=== PATIENT | male | born 1950 | race African-American/Black ===

== ENCOUNTER 2022-11-06 11:41 | Emergency (ER) | payer OTHER ==
[~2022-11-06] VITALS: Ht 170.2 cm; Wt 87.1 kg
[2022-11-06 11:50] VITALS: BP_SYST 126
[2022-11-06 12:54] LABS: BASOPHILS % (AUTO) 0.5 % (0.0-2.0); EOSINOPHILS # (AUTO) 0.3 K/uL (0.0-0.4); EOSINOPHILS % (AUTO) 4.1 % (0.0-4.0); HEMATOCRIT 43.1 % (36-54); HEMOGLOBIN 14.4 g/dL (14.0-18.0); LYMPHOCYTES # (AUTO) 2.8 K/uL (1.0-5.5); LYMPHOCYTES % (AUTO) 38.4 % (20.5-51.5); MEAN CORPUSCULAR HEMOGLOBIN 29 pg (27-31); MEAN CORPUSCULAR HGB CONC 33 % (32-36); MEAN CORPUSCULAR VOLUME 86 fL (79.0-98.0); MONOCYTES # (AUTO) 0.6 K/uL (0.0-1.0); MONOCYTES % (AUTO) 8.8 % (1.7-9.3); NEUTROPHILS # (AUTO) 3.5 K/uL (1.8-7.7); NEUTROPHILS % (AUTO) 48.2 % (40.0-70.0); PLATELET COUNT (AUTO) 198 K/uL (130-430); RED BLOOD CELL COUNT(AUTO) 5.04 MIL/uL (4.2-6.2); RED CELL DISTRIBUTION WIDTH 13.3 % (9.0-15.0); WHITE BLOOD COUNT (AUTO) 7.3 K/uL (4.8-10.8)
[2022-11-06] MEDS ORDERED: predniSONE 20 MG TABLET PO ONE (13:00)
[2022-11-06] MEDS ORDERED: KETOROLAC TROMETHAMINE 15 MG VIAL IVP ONE (13:00)
[2022-11-06] MEDS ORDERED: IPRATROPIUM/ALBUTEROL SULFATE 3 ML AMPUL.NEB (DUONEB) INH ONE (13:00)
[2022-11-06 13:03] LABS: ANION GAP 7 (5-15); CALCIUM 8.8 mg/dL (8.4-11.0); CHLORIDE 101 mmol/L (98-107); CREATININE 0.91 mg/dL (0.55-1.30); GLUCOSE 111 mg/dL (70-99); UREA NITROGEN, BLOOD 17 mg/dL (8-21)
[2022-11-06 13:10] LABS: ALANINE AMINOTRANSFERASE 35 U/L (12-78); ALBUMIN 3.7 g/dL (3.4-4.8); ASPARTATE AMINOTRANSFERASE 23 U/L (10-37); TOTAL BILIRUBIN 0.7 mg/dL (0.0-1.0)
[2022-11-06 13:14] LABS: GFR AFRICAN AMERICAN 106 mL/min (>90)
[2022-11-06] MEDS ORDERED: ALBMDI INH (13:48)
[2022-11-06] MEDS ORDERED: PRED20TA PO (13:48)
[2022-11-06] MEDS ORDERED: PSEU30TA36 PO (13:48)
[2022-11-06] MEDS ORDERED: GUAI-723 PO (13:48)
[2022-11-06 14:05] VITALS: BP_SYST 120
== END 2022-11-06 14:08 | disposition home or self-care (01) ==
LOC: SED 11:41
DX: J20.9 Acute bronchitis, unspecified (principal); R05.9 Cough, unspecified; R07.9 Chest pain, unspecified; I10 Essential (primary) hypertension; Z79.899 Other long term (current) drug therapy; Z20.822 Contact with and (suspected) exposure to COVID-19
CPT/HCPCS: 99285; 96374; 71045; 87426; 80053; 82550; 83880; 85025; 85379; 84484; 36415; 93005; 94640; 36600; 82803; J7512; J1885